=== PATIENT | female | born 1975 | race Caucasian/White ===

== ENCOUNTER → 2017-12-13 07:28 | Outpatient (CLI) | payer BC, SELFPAY ==
[2017-12-22 11:48] LABS: HPV Reflexed? NOT INDICATED
== END ==
PROVIDERS: Family Provider Student in an Organized Health Care Education/Training Program; PCP Student in an Organized Health Care Education/Training Program; Visit Provider Obstetrics & Gynecology
DX: Z12.4 Encounter for screening for malignant neoplasm of cervix (principal)
CPT/HCPCS: 88175; G0145

== ENCOUNTER 2019-05-22 20:36 | Inpatient (IN) | payer BC, SELFPAY ==
[2019-05-22 20:37] VITALS: BP 164/84; PULSE 109; RESP 26; TEMP 36.8; O2SAT 97; BMI 30.2
--- NOTE | 2019-05-22 20:53 | EKG12_ITS ---
Test Reason : SOB Blood Pressure : / mmHG Vent. Rate : 079 BPM Atrial Rate : 079 BPM P-R Int : 176 ms QRS Dur : 086 ms QT Int : 392 ms P-R-T Axes : 045 016 034 degrees QTc Int : 449 ms Normal sinus rhythm Normal ECG Confirmed by KAYLI ROCHA, CRISPIN ([id number]), editor farm journal MANJEET GONZALEZ ([id number]) on 05/24/2019 11:58:15 AM Referred By: GERI Confirmed By:CRISPIN MILAN MD
--- NOTE | 2019-05-22 20:58 | ED.DCSUM_ITS ---
History of Present Illness Chief Complaint: Shortness of Breath Informant: Patient Onset: Today - about 7 hrs or so Activity at onset: Rest Timing: Continuous Quality: - - can't take deep breath Current Severity: Moderate Maximum Severity: Moderate Worsened by: Nothing. Not Worsened By: Coughing, Exertion, Lying flat Relieved by: Nothing. Not Relieved By: Rest Associated Symptoms: Cough - mild, nonproductive Chest Pain: None Narrative: Patient has a history of hayfever/seasonal allergies but no asthma that she knows of. Started getting short of breath at work today, she states a coworker had a window open and she did not know if it was allergies, but the dyspnea has become worse tonight. She has developed no chest discomfort even with deep breathing, but has developed some inspiratory mild sounds that seem like they are coming from her HEENT/neck area. She has no sore throat or swallowing and does not feel like her throat is swelling. She has felt a little lightheaded once with standing up, but denies any presyncopal episodes, palpitations, no swelling or pain in either of her legs. Minor cough lately, no fevers. No clotting disorders in the family that she knows of. PE Risk Factors: Negative for: Cancer, OCP + Smoking + > 35, Prior DVT or PE, Recent immobilization, Recent surgery, Recent travel - Past Medical History (1) Seasonal allergies Status: Chronic (2) Antepartum anemia Status: Chronic Past Medical History - Allergies and Home Meds Allergies/Adverse Reactions: Allergies amoxicillin [Amoxicillin] Allergy (Verified 05/22/19 20:39) Hives HAYFEVER Allergy (Uncoded 05/22/19 20:39) Itching Primary Care Physician: Kaushal Castillo DO [Primary Care Provider] - Lives: Spouse/ Significant Other Smoking Status: Former smoker Drugs: None Review of Systems General: Reports: Malaise. Denies: Chills, Fever, Sweats Eyes: Denies: Visual changes - bilaterally, Diplopia ENT: Denies: Rhinorrhea, Sore throat Cardiovascular: Denies: Chest pain, Palpitations Respiratory: Reports: Dyspnea, Cough. Denies: Sputum, Dyspnea on exertion, Orthopnea Gastrointestinal: Denies: Abdominal pain, Nausea, Vomiting, Diarrhea, Melena, Hematochezia Genitourinary: Denies: Dysuria, Hematuria, Frequency Musculoskeletal: Denies: Back pain, Swelling, Extremity Pain Skin: Denies: Rash, Wounds Neurological: Denies: Headache, Weakness, Numbness Physical Exam Vital Signs/Narrative: Vital Signs Temp Pulse Resp BP Pulse Ox 05/22/19 20:37 98.2 F 109 H 26 H 164/84 H 97 Inital Vital Signs reviewed: Yes General: Well nourished, Well developed, No Acute Distress - But taking frequent deep breaths and appears a little uncomfortable Head: Normocephalic, Atraumatic Eyes: Perrl, EOMI ENT: Moist mucous membranes, No rhinorrhea, - - No stridor. Neck: Supple, Nontender Cardiovascular: Regular rate, Regular rhythm, No murmurs, Normal S1, Normal S2, Tachycardia - Mild Respiratory: No distress, Chest nontender, - - Bilateral anterior inspiratory low pitched noise only at the beginning of inspiration, very brief. Negative for: Rales, Rhonchi Abdomen: Soft, Nontender, Nondistended, Normal bowel sounds Back: Nontender, Normal Inspection. Negative for: CVA tenderness Extremities: Nontender, No edema. Negative for: Calf Tenderness Skin: Normal color, No rash, No Trauma Neurological: Alert, Oriented x3, Cranial nerves II-XII grossly intact, Normal Strength, Normal Sensation, Normal Gait Psychological: Normal affect, Normal Mood Diagnostic/Tx/Re-eval CTA PE Study: No Evidence of PE Impressions Chest X-Ray 05/22/19 21:27 IMPRESSION: Normal x-ray examination of the chest. Electronically Signed: Chilo Barnard MD at 21:45 EDT , Service support , Chest CTA 05/22/19 22:15 IMPRESSION: Normal CTA chest examination, without a demonstrated pulmonary embolism or arterial dissection. Electronically Signed: Chilo Barnard MD at 22:43 EDT , Service support , 05/22/19 21:27 Chest PA and Lateral [RAD] Stat 05/22/19 22:15 CTA Chest W/WO Contrast [CT] Stat Laboratory Results 05/22/19 05/22/19 05/22/19 21:00 21:00 21:00 WBC 8.2 RBC 4.32 Hgb 12.9 Hct 36.3 L MCV 84.0 MCH 29.9 MCHC 35.5 RDW Std Deviation 38.2 RDW Coeff of Jerry 12.5 Plt Count 288 MPV 9.6 Immature Gran % (Auto) 0.400 Neut % (Auto) 57.1 Lymph % (Auto) 33.0 [place] % (Auto) 7.3 Eos % (Auto) 1.6 Baso % (Auto) 0.6 Absolute Neuts (auto) 4.7 Absolute Lymphs (auto) 2.71 Nucleated RBC % 0 D-Dimer Quant (PE/DVT) < 0.27 L Sodium 142 Potassium 3.3 L Chloride 113 H Carbon Dioxide 20.0 L Anion Gap 9 BUN 9 Creatinine 0.68 Estim Creat Clear Calc 85.24 Est GFR (MDRD) Af Amer 122 Est GFR (MDRD) Non-Af 100 BUN/Creatinine Ratio 13.2 Glucose 89 Calcium 9.1 Troponin I < 0.015 Treatment - Dyspnea: Albuterol, Atrovent Repeat Evaluation: No change - Medical Decision Making There is no change in albuterol treatment. Chest x-ray and EKG are normal. Her d-dimer was negative, but I still felt given her frequent deep respirations that would be meek to perform CT angiography, it is negative/normal. Her labs s how low bicarb and potassium and high chloride with a normal anion gap. She has had no diarrhea recently. This suggests she may have renal tubular acidosis. ABG and urinalysis were sent. Urinalysis shows microscopic hematuria and is otherwise normal, patient states she has a history of microscopic hematuria and saw urologist for it, was told she did not have to come back and it was no big deal. ABG is as follows: 7.55/15.4/140/13.5. This suggests a mixed acid-base disorder, a respiratory alkalosis and a non-anion gap metabolic acidosis. My suspicion is that she has the acidosis that is causing her to feel short of breath, and the patient admits that she is feeling a little anxious because she is dyspneic, causing her to overcompensate, showing the respiratory alkalosis. I think it would be best to admit her for further testing, as the treatment depends on the cause. ED Disposition - Plan for ED Patient: Disposition: Acute Care [facility] Diagnosis: Metabolic acidosis with respiratory alkalosis, Hypokalemia, Dyspnea Referrals: Kaushal Castillo DO [Primary Care Provider] -
[2019-05-22 21:11] LABS: Absolute Lymphocyte Count 2.71 X10^3/uL (0.83-4.51); Absolute Neutrophil Count 4.7 X10^3/uL (2.0-7.7); Basophil# 0.05 X10^3/uL; Basophil% 0.6 % (0-1); Eosinophil# 0.13 X10^3/uL; Eosinophils% 1.6 % (0-5); Hematocrit 36.3 % (37-47); Hemoglobin 12.9 g/dL (12.0-15.0); Lymphocyte # 2.71 X10^3/ul (4.0); Mean Corp Hgb Conc 35.5 g/dL (32-36); Mean Corpuscular Hgb 29.9 pg (27.0-32.0); Mean Platelet Vol. 9.6 fl (6.2-12.0); Monocyte% 7.3 % (0-10); NRBC Flagged by Analyzer 0 % (0-5); Neutrophil # 4.69 X10^3/uL (2.7-7.7); Neutrophil % 57.1 % (47-70); Platelet Count 288 K/mm3 (150-450); RBC Distribution Width CV 12.5 % (11.6-14.6); RBC Distribution Width SD 38.2 fl (35.1-43.9); Red Blood Count 4.32 M/mm3 (4.2-5.4); White Blood Count 8.2 K/mm3 (4.4-11.0)
[2019-05-22 21:12] VITALS: O2SAT 100
[2019-05-22 21:19] VITALS: PULSE 86; RESP 20
[2019-05-22] MEDS: Ipratropium/Albuterol Sulfate 3 ML AMPUL.NEB INHALATION (21:19)
[2019-05-22 21:27] LABS: Anion Gap 9 (5-15); BUN 9 mg/dL (7-18); BUN/Creat Ratio 13.2 RATIO (10-20); Calcium,Total 9.1 mg/dL (8.5-10.1); Chloride 113 mmol/L (98-107); Creatinine, Serum 0.68 mg/dL (0.55-1.02); EST Glomerular Filtration Rate 100 mL/min (>60); Est Glom Filt Rate - Afr Amer 122 mL/min (>60); Estimated Creatinine Clearance 85.24 ml/min; Glucose 89 mg/dL (74-106); Potassium 3.3 mmol/L (3.5-5.1); Sodium Level 142 mmol/L (136-145)
--- NOTE | 2019-05-22 21:27 | RAD_ITS ---
STUDY: X-RAY CHEST REASON FOR EXAM: Female, 43 years old. Shortness of breath TECHNIQUE: Frontal and lateral views of the chest. COMPARISON: None. FINDINGS: The lungs are clear and expanded. There is no demonstrated pleural abnormality. Normal size heart. Normal mediastinum and andrae. Normal visualized pulmonary arteries. Normal visualized aortic arch and descending thoracic aorta. Normal visualized thoracic spine. Normal visualized ribs, clavicles, and shoulders. There is no demonstrated abnormality of the visualized soft tissue structures of the upper abdomen. RAD/Chest PA and Lateral IMPRESSION: Normal x-ray examination of the chest. Electronically Signed: Chilo Barnard MD at 21:45 EDT , Service support ,
[2019-05-22 21:53] LABS: D-Dimer Quantitative (DVT/PE) < 0.27 FEU/ug/m (0.27-0.49)
[2019-05-22] MEDS: 0.9% Normal Saline 1,000 ML 999 ML IV (22:01)
[2019-05-22] MEDS: Ondansetron 4 MG/2 ML Vial IV (22:01)
--- NOTE | 2019-05-22 22:15 | CT_ITS ---
STUDY: CTA CHEST REASON FOR EXAM: Female, 43 years old. Shortness of breath RADIATION DOSAGE (If Supplied By Facility): CTDIvol = ( 10.96 ) mGy, DLP = ( 477.25 ) mGycm TECHNIQUE: The examination was performed with the intravenous administration of 100ml IV Isovue 370. Post-processing of the angiographic images was performed, with multiplanar reformation and 3D reconstruction. Individualized dose optimization techniques were used for this CT. COMPARISON: May 22, 2019 FINDINGS: Normal enhancement of the main pulmonary artery and right and left pulmonary arteries. Normal enhancement of the bilateral peripheral pulmonary arteries. There is no demonstrated pulmonary embolism. Normal thoracic aorta and visualized great vessels. There is no demonstrated aortic dissection. Normal heart and pericardium. Normal mediastinum. Normal hilar regions. Normal visualized trachea and bronchi. The lungs are well expanded. Normal pulmonary parenchyma. Normal pleura. Normal chest wall structures. Normal osseous structures. Normal visualized upper abdomen. CT/CTA Chest W/WO Contrast IMPRESSION: Normal CTA chest examination, without a demonstrated pulmonary embolism or arterial dissection. Electronically Signed: Chilo Barnard MD at 22:43 EDT , Service support ,
[2019-05-22 23:07] VITALS: BP 134/93; PULSE 84; RESP 16; O2SAT 100
[2019-05-22 23:09] LABS: Bacteria 0 SEEN /hpf (None Seen); Mucous, Urine 0 SEEN /hpf (<or=2+); Squamous Epithelial Cells - UA 0 SEEN /hpf (5-10); White Blood Cells 0 SEEN /hpf (0-5)
[2019-05-22 23:10] LABS: Color, Urine Straw (Yellow); Glucose, Dipstick Normal (Normal); Ketone-Dipstick Negative (Negative); Leukocyte Esterase-Dipstick Negative /ul (Negative); Nitrite-Dipstick Negative (Negative); Occult Blood-Urine 150 /ul (Negative); Protein-Dipstick Negative (Negative); Urine Bilirubin Dipstick Negative (Negative); Urine Clarity Clear (Clear); Urine Urobilinogen Normal (Normal)
[2019-05-22 23:19] LABS: Red Blood Cells-Urine 0-5 SEEN /hpf (0-5)
--- NOTE | 2019-05-22 23:25 | CPS ---
Critical Values on ABG: PCO2 [address] Fitzgerald
[2019-05-22 23:26] LABS: Allen Test POS; Base Excess -9 mmol/L (-2 to +2); Bicarbonate 13.5 mmol/L (22-26); Blood Gas Specimen Type ART; O2 Delivery Device Room Air; PO2 140 mmHG (75-100); SITE L Radial; SO2 100 % (95-99); Time Given 2310; Total Carbon Dioxide 14 mmol/L; pCO2 15.4 mmHg (35-45); pH 7.55 (7.35-7.45)
[2019-05-23] VITALS (11 sets, daily range): BP systolic 125–141; BP diastolic 64–81; PULSE 74–92; RESP 14–26; TEMP 36.5–37.6; O2SAT 97–100; BMI 31.6
--- NOTE | 2019-05-23 00:02 | HP.PCM_ITS ---
Problem List (1) Seasonal allergies Status: Chronic (2) Metabolic acidosis with respiratory alkalosis Status: Acute (3) Hypokalemia Status: Acute (4) Dyspnea Status: Acute History of Present Illness Date of Admission: 05/23/19 Chief Complaint: shortness of breath The patient is a 43 year old female presents to the emergency room with shortness of breath. The patient first noticed this when at work this morning as she felt she was having trouble getting a full breath of air, at that time she wrote it off to feeling anxious thinking that this would pass and she would feel normal as she has in the past. Then as the day progressed she noticed she was struggling more to get a full breath of air at which point she noticed the deskmate next to her had the windows open and she attributed her worsening breathing to seasonal allergies. This did not improve and her shortness of breath became worse during the day. She has not experienced chest pain, nausea with this shortness of breath. Laboratory studies revealed white blood cell count of 8.2 hemoglobin 12.9, hematocrit 36.3, platelets 288, arterial blood gas shows pH 7.55/bicarb 13.5 last PCO2 15.4/PO2 140, sodium 142, potassium 3.3, chloride 113, bicarb 20, BUN 9, creatinine 0.68, troponin negative, urine unremarkable except for hematuria. Chest x-ray was within normal limits as well as CT angiogram of the chest was negative for pulmonary embolism or other pathology. Currently the patient's vital signs are stable, however, she remains short of breath(tachypneic) and due to the nature of an acid-base disturbance it was felt best to admit the patient for further work-up. Past Medical History Past Medical History (Chronic Problems): Chronic Problems Seasonal allergies (Chronic) Antepartum anemia (Chronic) Allergies amoxicillin [Amoxicillin] Allergy (Verified 05/22/19 20:39) Hives HAYFEVER Allergy (Uncoded 05/22/19 20:39) Itching Home Medications: Ambulatory Orders Medication Instructions Recorded Famotidine [Pepcid] 20 mg PO BID PRN 02/17/14 Vits [Prenatabs FA ] 1 tablet PO DAILY 02/17/14 Cetirizine HCl [Zyrtec] 10 mg PO DAILY 05/22/19 Lives: Spouse/ Significant Other Smoking Status: Never smoker Drugs: None - *Family History Maternal History Items: No pertinent history Review of Systems Constitutional: Denies: Chills, Fever, Weight Change HEENT: Denies: Head Aches, Sinus Congestion, Sinus Drainage Cardiovascular: Denies: Chest Pain, Palpitations Respiratory: Reports: Shortness of breath at rest. Denies: Cough, Hemoptysis, Pleuritic Pain, Sputum production, Wheezing Gastrointestinal: Denies: Abdominal Pain, Nausea, Vomiting Genitourinary: Denies: Dysuria Musculoskeletal: Denies: Joint Pain, Joint Tenderness Skin: Denies: Rash, Wounds Neurological: Denies: Numbness, Tingling, Focal weakness Psychiatric: Reports: Anxiety. Denies: Depression, Homicidal Ideations, Suicidal Ideations Hematologic/ Lymphatic: Denies: Easy Bruising, Easy Bleeding VTE Information - Inpt Only VTE Present on Admission: No VTE Mechan Device Prophylaxis: None VTE Pharm Prophylaxis ordered?: Yes Patient Problems: Active and Suspected Problems Metabolic acidosis with respiratory alkalosis (Acute) Hypokalemia (Acute) Dyspnea (Acute) - Physical Exam General: Alert, Oriented x3, Cooperative HEENT: Atraumatic, Normocephalic Neck: Supple Lungs: Clear to auscultation, Normal air movement, Tachypneic Cardiovascular: Regular rate, Normal S1, Normal S2, No murmurs Abdomen: Bowel Sounds Present, Soft, Non Tender Extremities: No edema, Capillary Refill Less than 3 Seconds Skin: No rashes Musculoskeletal: No Tenderness to Palpation of Joints or Extremities Neurological: Neuro grossly intact Psych/Mental Status: Normal Affect, Appropriate Vital Signs Temp Pulse Resp BP Pulse Ox 98.2 F 84 16 134/93 H 100 05/22/19 20:37 05/22/19 23:07 05/22/19 23:07 05/22/19 23:07 05/22/19 23:07 Oxygen Delivery Method Room Air Weight: 165 lb Body Mass Index (BMI) 30.2 Intake and Output for Last 24 Hours 05/21/19 05/22/19 05/23/19 23:59 23:59 23:59 Intake Total 1000 / 1000 Balance 1000 / 1000 Laboratory Tests Past 24 Hrs 05/22/19 05/22/19 05/22/19 21:00 21:00 21:00 WBC 8.2 RBC 4.32 Hgb 12.9 Hct 36.3 L MCV 84.0 MCH 29.9 MCHC 35.5 RDW Std Deviation 38.2 RDW Coeff of Jerry 12.5 Plt Count 288 MPV 9.6 Immature Gran % (Auto) 0.400 Neut % (Auto) 57.1 Lymph % (Auto) 33.0 [place] % (Auto) 7.3 Eos % (Auto) 1.6 Baso % (Auto) 0.6 Absolute Neuts (auto) 4.7 Absolute Lymphs (auto) 2.71 Nucleated RBC % 0 D-Dimer Quant (PE/DVT) < 0.27 L Specimen Type Sample Site pH Bicarbonate Actual POC Total CO2 Base Excess O2 Saturation ABG pCO2 ABG pO2 Raghu Test O2 Delivery Device Blood Gas Notified Whom Blood Gas Notified Time Sodium 142 Potassium 3.3 L Chloride 113 H Carbon Dioxide 20.0 L Anion Gap 9 BUN 9 Creatinine 0.68 Estim Creat Clear Calc 85.24 Est GFR (MDRD) Af Amer 122 Est GFR (MDRD) Non-Af 100 BUN/Creatinine Ratio 13.2 Glucose 89 Calcium 9.1 Troponin I < 0.015 Urine Color Urine Clarity Urine pH Ur Specific [place] Urine Protein Urine Glucose (UA) Urine Ketones Urine Occult Blood Urine Nitrite Urine Bilirubin Urine Urobilinogen Ur Leukocyte Esterase Urine RBC Urine WBC Ur Squamous Epith Cells Urine Bacteria Urine Mucus 05/22/19 05/22/19 23:05 23:15 WBC RBC Hgb Hct MCV MCH MCHC RDW Std Deviation RDW Coeff of Jerry Plt Count MPV Immature Gran % (Auto) Neut % (Auto) Lymph % (Auto) [place] % (Auto) Eos % (Auto) Baso % (Auto) Absolute Neuts (auto) Absolute Lymphs (auto) Nucleated RBC % D-Dimer Quant (PE/DVT) Specimen Type ART Sample Site L Radial pH 7.55 H Bicarbonate Actual 13.5 L POC Total CO2 14 Base Excess -9 L O2 Saturation 100 H ABG pCO2 15.4 L* ABG pO2 140 H Raghu Test POS O2 Delivery Device Room Air Blood Gas Notified Whom ED Blood Gas Notified Time 2310 Sodium Potassium Chloride Carbon Dioxide Anion Gap BUN Creatinine Estim Creat Clear Calc Est GFR (MDRD) Af Amer Est GFR (MDRD) Non-Af BUN/Creatinine Ratio Glucose Calcium Troponin I Urine Color Straw Urine Clarity Clear Urine pH 8.0 Ur Specific [place] 1.010 Urine Protein Negative Urine Glucose (UA) Normal Urine Ketones Negative Urine Occult Blood 150 H Urine Nitrite Negative Urine Bilirubin Negative Urine Urobilinogen Normal Ur Leukocyte Esterase Negative Urine RBC 0-5 SEEN Urine WBC 0 SEEN Ur Squamous Epith Cells 0 SEEN Urine Bacteria 0 SEEN Urine Mucus 0 SEEN Assessment/Plan All Active Problems Metabolic acidosis with respiratory alkalosis (Acute) Hypokalemia (Acute) Dyspnea (Acute) Chronic Problems Seasonal allergies (Chronic) Antepartum anemia (Chronic) Plan 1. Shortness of breath, suspect metabolic acidosis with respiratory alkalosis?we will continue supportive care throughout the night and encourage patient to slow her breathing down as best as she can. Will consult nephrology in the a.m. to assist with the possibility of renal tubular acidosis as an underlying etiology for this presentation. We will repeat a blood gas, CBC, BMP, urine sodium, urine osmolality,serum osmolality, will place patient in progressive care unit with cardiac monitoring as well as pulse oximetry. Patient is able to talk in full sentences at this time and is felt stable for placement in the progressive care unit. 2. Hypokalemia?replace potassium 3. DVT prophylaxis?low molecular weight heparin Code Visit Inpatient E&M: 66298 Init Hosp L3
[2019-05-23 01:10] LABS: Urine Sodium 48 mmol/L (Not Establ.)
[2019-05-23 02:10] LABS: Absolute Neutrophil Count 5.9 X10^3/uL (2.0-7.7); Basophil# 0.03 X10^3/uL; Basophil% 0.4 % (0-1); Eosinophil# 0.01 X10^3/uL; Eosinophils% 0.1 % (0-5); Hematocrit 36.8 % (37-47); Hemoglobin 12.9 g/dL (12.0-15.0); Lymphocyte % 19.4 % (19-41); Mean Corp Hgb Conc 35.1 g/dL (32-36); Mean Corpuscular Hgb 29.7 pg (27.0-32.0); Mean Corpuscular Volume 84.8 fL (81-99); Mean Platelet Vol. 9.6 fl (6.2-12.0); Monocyte# 0.33 X10^3/uL; Monocyte% 4.3 % (0-10); NRBC Flagged by Analyzer 0 % (0-5); Neutrophil # 5.85 X10^3/uL (2.7-7.7); Neutrophil % 75.4 % (47-70); Platelet Count 289 K/mm3 (150-450); RBC Distribution Width CV 12.6 % (11.6-14.6); RBC Distribution Width SD 38.6 fl (35.1-43.9); Red Blood Count 4.34 M/mm3 (4.2-5.4); White Blood Count 7.8 K/mm3 (4.4-11.0)
[2019-05-23 02:21] LABS: Anion Gap 11 (5-15); BUN 7 mg/dL (7-18); BUN/Creat Ratio 9.7 RATIO (10-20); Calcium,Total 8.6 mg/dL (8.5-10.1); Chloride 113 mmol/L (98-107); Creatinine, Serum 0.72 mg/dL (0.55-1.02); EST Glomerular Filtration Rate 94 mL/min (>60); Est Glom Filt Rate - Afr Amer 114 mL/min (>60); Glucose 105 mg/dL (74-106); Magnesium 2.1 mg/dL (1.6-2.6); Potassium 3.4 mmol/L (3.5-5.1); Sodium Level 142 mmol/L (136-145)
[2019-05-23 02:29] LABS: Osmolality, Serum 290 mOsm/KG (275-295)
[2019-05-23 02:35] LABS: Phosphorus 2.8 mg/dL (2.5-4.9)
[2019-05-23 02:35] LABS: Osmolality, Urine 130 mOsm/KG
--- NOTE | 2019-05-23 02:50 | NURSING ---
SHAYY MENEZES NOTIFIED THAT PT IS REFUSING BLOOD DRAW. PT SAID IT STILL HURTS WHERE THEY TOOK IT IN ED. PT REFUSES TO HAVE IT DONE AT THIS TIME
[2019-05-23] MEDS: Famotidine 20 MG Tablet PO (09:06)
[2019-05-23 09:59] LABS: Urine Chloride 39 mmol/L (Not Establ.); Urine Sodium 48 mmol/L (Not Establ.)
[2019-05-23] MEDS: Prenatal Vits Tablet 1 TABLET PO (10:22)
[2019-05-23] MEDS: Loratadine 10 MG Tablet PO (10:22)
[2019-05-23] MEDS: Enoxaparin 40 MG/0.4 ML Syringe SC (10:22)
--- NOTE | 2019-05-23 11:42 | CASEMGMT ---
RN CM Assessment Presentation: shortness of breath, metabolic acidosis w/resp alkalosis. Intro role of CM and purpose of RN CM assessment. Demographics, PCP and Pharmacy verified with . Pt is independent, no care needs. Plans to return home on dc. PCP: Dr. Kaushal Castillo Specialists: Dr. Nava, nephrology Preferred Pharmacy: [facility] Insurance: [place] Prescription Benefit: yes LNOK: Micah Parikh Living Arrangements: Lives independently with . No care needs identified. Transportation: drives DME: none HHC: none Patient DC goals: Home DC PLAN: Home [place] WILHELM RN ACM
[2019-05-23 14:34] LABS: Blood Gas Specimen Type VEN; O2 Delivery Device RA; SITE L RADIAL; Time Given 1339; VBG PO2 63 mmHg (25-40); VBG pCO2 19.4 mmHg (41-51); VBG pH 7.53 (7.32-7.42)
[2019-05-23 14:35] LABS: VBG BASE EXCESS -6 mmol/L (-1.0-3.5); VBG Bicarbonate 16 mmol/L (22-26); VBG SO2 95 % (50-70)
--- NOTE | 2019-05-23 16:06 | US_ITS ---
REPORT STUDY: RENAL ULTRASOUND - COMPLETE REASON FOR EXAM: Female, 43 years old. Microscopic hematuria TECHNIQUE: Ultrasound evaluation of the kidneys was performed with real-time and static patricio-scale imaging. COMPARISON: None. FINDINGS: RIGHT KIDNEY: Normal location of the right kidney, which is normal in size. The right kidney measures 12.6 cm. There is a normal cortex of the right kidney. The renal cortex measures 2 cm. There is no right renal mass or cyst. There are no right renal calculi. There is no right hydronephrosis. DISTAL RIGHT URETER: There is non-visualization of the distal right ureter. There is no demonstrated right ureterovesical junction calculus. There is a visualized right ureteral jet. LEFT KIDNEY: Normal location of the left kidney, which is normal in size. The left kidney measures 13.3 cm. There is a normal cortex of the left kidney. The renal cortex measures 1.8 cm. There is no left renal mass or cyst. There are no left renal calculi. There is no left hydronephrosis. 2.8 x 1.8 cm simple renal cortical cyst. DISTAL LEFT URETER: There is non-visualization of the distal left ureter. There is no demonstrated left ureterovesical junction calculus. There is a visualized left ureteral jet. BLADDER: The distended urinary bladder has a volume of 137 ml. There is a normal wall thickness of the distended urinary bladder. There is no demonstrated mass within the urinary bladder. There are no demonstrated bladder calculi. US/Kidney and Bladder IMPRESSION: Normal ultrasound of the kidneys and urinary bladder. Electronically Signed: Chilo Barnard MD at 17:00 EDT , Service support ,
--- NOTE | 2019-05-23 16:15 | CON.PCM_ITS ---
Consultation - Renal 05/23/19 PCP/ Referring MD: Requesting physician: David Trinidad MD Primary care physician: Kaushal Castillo DO Reason for Consultation:: metabolic acidosis - History of Present Illness History of Present Illness: The patient is a 43 year old F presents to the emergency room with shortness of breath past 24hrs. She felt like she was gasping for air or not getting full breath of air. Denied chest pain, palpitations, shortness of breath. Denied lightheadedness, syncope. Denies history of anxiety attacks, depression. She denies PE, DVT. Ddimer was negative <0.27 with unremarkable CTA and CXR. Renal function was stable with creatinine 0.68. Her bicarbonate was low at 15 on ABG with respiratory alkalosis pH 7.5 serum bicarbonate 18-20 chloride 113. She denies diarrhea or laxative use. She complains of pelvic cramps associated with BMs and menstrual cycles. She does not take medications on a regular basis other than allergy meds. Denies acetaminophen use but takes ibuprofen for migraines, none recently. She denies glue sniffing, ingestion of alcohol. She denies hypertension, diabetes, heart disease. Denies autoimmune disorder. She has a history of microscopic hematuria. Denies history of kidney stones, autoimmune disease, arthralgias, skin rash. FH significant for CKD in her father with renal tumors, gross hematuria. - Allergies Allergies: Allergies cefdinir Allergy (Intermediate, Verified 05/23/19 08:47) Rash all over amoxicillin [Amoxicillin] Allergy (Verified 05/22/19 20:39) Hives HAYFEVER Allergy (Uncoded 05/22/19 20:39) Itching - Current Medications Current Medications: Current Medications Enoxaparin Sodium (Lovenox) 40 mg SC DAILY@1000 SILVANO Last Admin: 05/23/19 10:22 Dose: 40 mg Documented by: Famotidine (Pepcid) 20 mg PO BID PRN PRN PRN Reason: ABD PAIN Last Admin: 05/23/19 09:06 Dose: 20 mg Documented by: Sodium Chloride () 250 mls @ 15 mls/hr IV .[id number] PRN PRN Reason: SALINE FLUSH Loratadine (Claritin) 10 mg PO DAILY [facility] Last Admin: 05/23/19 10:22 Dose: 10 mg Documented by: Ondansetron HCl (Zofran) 4 mg IV Q8H PRN PRN PRN Reason: NAUSEA/VOMITING Multivit/Folic Acid/Iron (Prenatabs Fa) 1 tablet PO DAILY SILVANO Last Admin: 05/23/19 10:22 Dose: 1 tablet Documented by: Sodium Chloride () 10 - 40 ml IV UD PRN PRN Reason: SALINE FLUSH - Past Medical History Past Medical History (Chronic Problems): Chronic Problems Seasonal allergies (Chronic) Antepartum anemia (Chronic) - Past Surgical History Surgical History: - - c section - Social History Smoking Status: Never smoker Tobacco Use: Non-smoker Alcohol: None Drugs: None - Family History Maternal History Items: No pertinent history Paternal History Items: Renal Disease - ckd, renal tumors Review of Systems Constitutional: Denies: Anorexia, Chills, Fever, Weakness Eyes: Denies: Blurred vision HEENT: Reports: Head Aches - hx migraines Cardiovascular: Denies: Chest Pain, Edema, Light Headedness, Palpitations, Syncope Respiratory: Reports: Shortness of Breath, Shortness of breath at rest. Denies: Cough Gastrointestinal: Denies: Abdominal Pain, Diarrhea, Nausea, Vomiting Genitourinary: Reports: - - hx microscopic hematuria. Denies: Dysuria Musculoskeletal: Reports: Joint stiffness, Joint swelling Skin: Denies: Rash Neurological: Denies: Balance problems, Blurred vision, Tremor, Seizures Psychiatric: Denies: Anxiety, Depression Hematologic/ Lymphatic: Denies: Anemia, Hx of blood clot Patient Problems: Active and Suspected Problems Type I RTA (Acute) Metabolic acidosis with respiratory alkalosis (Acute) Hypokalemia (Acute) Dyspnea (Acute) - Physical Exam General: Alert, Oriented x3 HEENT: PERRLA, EOMI Oral: Dry Mucosa Neck: Supple Lungs: Clear to auscultation Cardiovascular: Regular rate Abdomen: Bowel Sounds Present, Soft, Non Tender, Non-Distended Extremities: No edema Skin: No rashes Musculoskeletal: No Muscle Wasting Neurological: Cranial nerves II-XII grossly intact Psych/Mental Status: Normal Affect, Appropriate, Alert and oriented to time, place, person, mood and affect Vital Signs Temp Pulse Resp BP Pulse Ox 99.7 F H 74 18 130/81 H 100 05/23/19 13:45 05/23/19 15:00 05/23/19 13:45 05/23/19 13:45 05/23/19 13:45 Oxygen Delivery Method Room Air Weight: 78.4 kg Body Mass Index (BMI) 31.6 Intake and Output for Last 24 Hours 05/21/19 05/22/19 05/23/19 23:59 23:59 23:59 Intake Total 1000 / 1000 1780 / 1780 Output Total 1500 / 1500 Balance 1000 / 1000 280 / 280 Laboratory Tests Past 24 Hrs 05/22/19 05/22/19 05/22/19 21:00 21:00 21:00 WBC 8.2 RBC 4.32 Hgb 12.9 Hct 36.3 L MCV 84.0 MCH 29.9 MCHC 35.5 RDW Std Deviation 38.2 RDW Coeff of Jerry 12.5 Plt Count 288 MPV 9.6 Immature Gran % (Auto) 0.400 Neut % (Auto) 57.1 Lymph % (Auto) 33.0 Walker % (Auto) 7.3 Eos % (Auto) 1.6 Baso % (Auto) 0.6 Absolute Neuts (auto) 4.7 Absolute Lymphs (auto) 2.71 Nucleated RBC % 0 D-Dimer Quant (PE/DVT) < 0.27 L Specimen Type Sample Site pH Bicarbonate Actual POC Total CO2 Base Excess O2 Saturation ABG pCO2 ABG pO2 Raghu Test VBG pH VBG pO2 VBG O2 Sat (Calc) VBG O2 Content VBG Base Excess POC Mix VBG pCO2 Pt Tmp O2 Delivery Device Blood Gas Notified Whom Blood Gas Notified Time Sodium 142 Potassium 3.3 L Chloride 113 H Carbon Dioxide 20.0 L Anion Gap 9 BUN 9 Creatinine 0.68 Estim Creat Clear Calc 85.24 Est GFR (MDRD) Af Amer 122 Est GFR (MDRD) Non-Af 100 BUN/Creatinine Ratio 13.2 Glucose 89 Serum Osmolality Calcium 9.1 Phosphorus Magnesium Troponin I < 0.015 Urine Color Urine Clarity Urine pH Ur Specific [place] Urine Protein Urine Glucose (UA) Urine Ketones Urine Occult Blood Urine Nitrite Urine Bilirubin Urine Urobilinogen Ur Leukocyte Esterase Urine RBC Urine WBC Ur Squamous Epith Cells Urine Bacteria Urine Mucus Urine Osmolality Ur Random Sodium Urine Potassium Urine Chloride 05/22/19 05/22/19 05/23/19 23:05 23:15 01:01 WBC RBC Hgb Hct MCV MCH MCHC RDW Std Deviation RDW Coeff of Jerry Plt Count MPV Immature Gran % (Auto) Neut % (Auto) Lymph % (Auto) Walker % (Auto) Eos % (Auto) Baso % (Auto) Absolute Neuts (auto) Absolute Lymphs (auto) Nucleated RBC % D-Dimer Quant (PE/DVT) Specimen Type ART Sample Site L Radial pH 7.55 H Bicarbonate Actual 13.5 L POC Total CO2 14 Base Excess -9 L O2 Saturation 100 H ABG pCO2 15.4 L* ABG pO2 140 H Rahgu Test POS VBG pH VBG pO2 VBG O2 Sat (Calc) VBG O2 Content VBG Base Excess POC Mix VBG pCO2 Pt Tmp O2 Delivery Device Room Air Blood Gas Notified Whom ED Blood Gas Notified Time 2310 Sodium Potassium Chloride Carbon Dioxide Anion Gap BUN Creatinine Estim Creat Clear Calc Est GFR (MDRD) Af Amer Est GFR (MDRD) Non-Af BUN/Creatinine Ratio Glucose Serum Osmolality Calcium Phosphorus Magnesium Troponin I Urine Color Straw Urine Clarity Clear Urine pH 8.0 Ur Specific [place] 1.010 Urine Protein Negative Urine Glucose (UA) Normal Urine Ketones Negative Urine Occult Blood 150 H Urine Nitrite Negative Urine Bilirubin Negative Urine Urobilinogen Normal Ur Leukocyte Esterase Negative Urine RBC 0-5 SEEN Urine WBC 0 SEEN Ur Squamous Epith Cells 0 SEEN Urine Bacteria 0 SEEN Urine Mucus 0 SEEN Urine Osmolality 130 Ur Random Sodium Urine Potassium Urine Chloride 05/23/19 05/23/19 05/23/19 01:01 01:01 02:00 WBC RBC Hgb Hct MCV MCH MCHC RDW Std Deviation RDW Coeff of Jerry Plt Count MPV Immature Gran % (Auto) Neut % (Auto) Lymph % (Auto) Walker % (Auto) Eos % (Auto) Baso % (Auto) Absolute Neuts (auto) Absolute Lymphs (auto) Nucleated RBC % D-Dimer Quant (PE/DVT) Specimen Type Sample Site pH Bicarbonate Actual POC Total CO2 Base Excess O2 Saturation ABG pCO2 ABG pO2 Raghu Test VBG pH VBG pO2 VBG O2 Sat (Calc) VBG O2 Content VBG Base Excess POC Mix VBG pCO2 Pt Tmp O2 Delivery Device Blood Gas Notified Whom Blood Gas Notified Time Sodium Potassium Chloride Carbon Dioxide Anion Gap BUN Creatinine Estim Creat Clear Calc Est GFR (MDRD) Af Amer Est GFR (MDRD) Non-Af BUN/Creatinine Ratio Glucose Serum Osmolality 290 Calcium Phosphorus Magnesium Troponin I Urine Color Urine Clarity Urine pH Ur Specific [place] Urine Protein Urine Glucose (UA) Urine Ketones Urine Occult Blood Urine Nitrite Urine Bilirubin Urine Urobilinogen Ur Leukocyte Esterase Urine RBC Urine WBC Ur Squamous Epith Cells Urine Bacteria Urine Mucus Urine Osmolality Ur Random Sodium 48 48 Urine Potassium 6.0 Urine Chloride 39 05/23/19 05/23/19 05/23/19 02:00 02:00 02:00 WBC 7.8 RBC 4.34 Hgb 12.9 Hct 36.8 L MCV 84.8 MCH 29.7 MCHC 35.1 RDW Std Deviation 38.6 RDW Coeff of Jerry 12.6 Plt Count 289 MPV 9.6 Immature Gran % (Auto) 0.400 Neut % (Auto) 75.4 H Lymph % (Auto) 19.4 Walker % (Auto) 4.3 Eos % (Auto) 0.1 Baso % (Auto) 0.4 Absolute Neuts (auto) 5.9 Absolute Lymphs (auto) 1.50 Nucleated RBC % 0 D-Dimer Quant (PE/DVT) Specimen Type Sample Site pH Bicarbonate Actual POC Total CO2 Base Excess O2 Saturation ABG pCO2 ABG pO2 Raghu Test VBG pH VBG pO2 VBG O2 Sat (Calc) VBG O2 Content VBG Base Excess POC Mix VBG pCO2 Pt Tmp O2 Delivery Device Blood Gas Notified Whom Blood Gas Notified Time Sodium 142 Potassium 3.4 L Chloride 113 H Carbon Dioxide 18.0 L Anion Gap 11 BUN 7 Creatinine 0.72 Estim Creat Clear Calc 80.50 Est GFR (MDRD) Af Amer 114 Est GFR (MDRD) Non-Af 94 BUN/Creatinine Ratio 9.7 L Glucose 105 Serum Osmolality Calcium 8.6 Phosphorus 2.8 Magnesium 2.1 Troponin I Urine Color Urine Clarity Urine pH Ur Specific [place] Urine Protein Urine Glucose (UA) Urine Ketones Urine Occult Blood Urine Nitrite Urine Bilirubin Urine Urobilinogen Ur Leukocyte Esterase Urine RBC Urine WBC Ur Squamous Epith Cells Urine Bacteria Urine Mucus Urine Osmolality Ur Random Sodium Urine Potassium Urine Chloride 05/23/19 13:39 WBC RBC Hgb Hct MCV MCH MCHC RDW Std Deviation RDW Coeff of Jerry Plt Count MPV Immature Gran % (Auto) Neut % (Auto) Lymph % (Auto) Walker % (Auto) Eos % (Auto) Baso % (Auto) Absolute Neuts (auto) Absolute Lymphs (auto) Nucleated RBC % D-Dimer Quant (PE/DVT) Specimen Type JEFFY Sample Site L RADIAL pH Bicarbonate Actual POC Total CO2 Base Excess O2 Saturation ABG pCO2 ABG pO2 Raghu Test VBG pH 7.53 H VBG pO2 63 H VBG O2 Sat (Calc) 95 H VBG O2 Content Pending VBG Base Excess -6 L POC Mix VBG pCO2 Pt Tmp 19.4 L O2 Delivery Device RA Blood Gas Notified Whom HOSP Blood Gas Notified Time 1339 Sodium Potassium Chloride Carbon Dioxide Anion Gap BUN Creatinine Estim Creat Clear Calc Est GFR (MDRD) Af Amer Est GFR (MDRD) Non-Af BUN/Creatinine Ratio Glucose Serum Osmolality Calcium Phosphorus Magnesium Troponin I Urine Color Urine Clarity Urine pH Ur Specific [place] Urine Protein Urine Glucose (UA) Urine Ketones Urine Occult Blood Urine Nitrite Urine Bilirubin Urine Urobilinogen Ur Leukocyte Esterase Urine RBC Urine WBC Ur Squamous Epith Cells Urine Bacteria Urine Mucus Urine Osmolality Ur Random Sodium Urine Potassium Urine Chloride Assessment/Plan All Active Problems Type I RTA (Acute) Metabolic acidosis with respiratory alkalosis (Acute) Hypokalemia (Acute) Dyspnea (Acute) 1 Hyperchoremic, hypokalemic metabolic acidosis with respiratory alkalosis. Urine anion gap positive to suggest RTA type 1 with alkaline urine pH 8.0. No Osmolar gap or anion gap. Obtain records from [facility] for prior lab work. CTA, dDimer unremarkable for PE. No hx of glue sniffing for toluene toxicity, acetaminophen use causing 5 oxoproline excess, or diarrhea/GI loss. No hx laxative use. No history of alcohol, isopropanol or ethylene glycol use with no osmolar gap. Will start her on sodium bicarbonate tablets 650mg twice a day and f/u in office with me in 1-2 wks with repeat labs in one week. 2. Check renal US for renal mass, kidney stones. 3. Microscopic hematuria. Check MAHOGANY titer. Consider autoimmune disorder. Discussed with primary service
--- NOTE | 2019-05-23 18:00 | DCINST_ITS ---
- Discharge Diagnoses Current Active Problems: Current Active and Chronic Problems Type I RTA (Acute) Metabolic acidosis with respiratory alkalosis (Acute) Hypokalemia (Acute) Dyspnea (Acute) You will use the following diet at home:: No restrictions Your food should be the consistency of: Regular Your liquids should be the consistency of: Regular/Thin Discharge Activity: Return to Normal Activity Weight Bearing Status: Full weight bearing Allergies/Adverse Reactions: Allergies cefdinir Allergy (Intermediate, Verified 05/23/19 08:47) Rash all over amoxicillin [Amoxicillin] Allergy (Verified 05/22/19 20:39) Hives HAYFEVER Allergy (Uncoded 05/22/19 20:39) Itching Medications to take at Discharge Famotidine [Pepcid] 20 mg PO BID PRN 02/17/14 Vits [Prenatabs FA ] 1 tablet PO DAILY 02/17/14 Cetirizine HCl [Zyrtec] 10 mg PO DAILY 05/22/19 Sodium Bicarbonate 650 mg PO BID #60 tablet 05/23/19 The following prescriptions were given: Sodium Bicarbonate 650 mg PO BID #60 tablet Primary Care Physician: Kaushal Castillo DO [Primary Care Provider] - Please follow up with your Primary Care Physician in: IN 2 WEEKS Test Results: Test results from this visit will be discussed in further detail at your follow- up appointment, if applicable. Please Follow Up With: Melissa Nava DO When: 1-2 WEEKS
--- NOTE | 2019-05-25 11:10 | PCM.DC.SUM ---
Discharge Date and Diagnosis - Problem List Patient Problems: Active and Suspected Problems Type I RTA (Acute) Date of Admission: 05/23/19 Date of Discharge: 05/23/19 - Primary Discharge Diagnosis Active and Suspected Problems Type I RTA (Acute) Hyperchoremic, hypokalemic metabolic acidosis with respiratory alkalosis. Urine anion gap positive to suggest RTA type 1 - Secondary Discharge Diagnosis Chronic Problems Seasonal allergies (Chronic) Antepartum anemia (Chronic) Hospital Course and Treatment Operations: None Procedures: None Summary of Care Provided: The patient is a 43 year old F was seen in the emergency room at [facility] with a chief complaint of shortness of breath. Work-up in the emergency room included a blood gas which showed an acidosis but normal PCO2, chest x-ray was unremarkable. EKG was normal, patient's d-dimer was negative but it was decided to perform a CT of the chest-this was performed and did not show any evidence of clot. It was felt that she had RTA. Patient was placed in observation status on PCU, she was given potassium supplementation, she was seen in consultation by nephrology, testing was ordered and it was felt that the patient had type I RTA. Treatment for this would be sodium bicarb tablets. On 05/23/2019, patient was seen and examined: On examination she appeared in good health and spirits. Vital signs as documented. Skin warm and dry and without overt rashes. Neck without JVD. Lungs clear. Heart exam notable for regular rhythm, normal sounds and absence of murmurs, rubs or gallops. Abdomen unremarkable and without evidence of organomegaly, masses, or abdominal aortic enlargement. Extremities nonedematous. Neuro: Cranial nerves II through XII are grossly intact, no focal motor deficits were noted, sensation to light touch and pinprick is intact. Psych: Patient is alert and oriented x3, she does not appear anxious or depressed On 05/23/2019, patient was seen and examined and felt to be in stable condition for discharge home Patient Problems: Active and Suspected Problems Type I RTA (Acute) - Physical Exam Vital Signs Temp Pulse Resp BP Pulse Ox 98.6 F 74 14 125/80 H 100 05/23/19 17:46 05/23/19 17:46 05/23/19 17:46 05/23/19 17:46 05/23/19 17:46 Oxygen Delivery Method Room Air Weight: 78.4 kg Body Mass Index (BMI) 31.6 Intake and Output for Last 24 Hours 05/23/19 05/24/19 05/25/19 23:59 23:59 23:59 Intake Total 2300 / 2300 Output Total 1500 / 1500 Balance 800 / 800 Discharge Activity: Return to Normal Activity Weight Bearing Status: Full weight bearing Home Medications: Medications to take at Discharge Famotidine [Pepcid] 20 mg PO BID PRN 02/17/14 Vits [Prenatabs FA ] 1 tablet PO DAILY 02/17/14 Cetirizine HCl [Zyrtec] 10 mg PO DAILY 05/22/19 Sodium Bicarbonate 650 mg PO BID #60 tab 05/23/19 Following Prescrptions Were Given to Patient: Sodium Bicarbonate 650 mg PO BID #60 tab Primary Care Physician: Kaushal Castillo DO [Primary Care Provider] - Please follow up with your Primary Care Physician in: IN 2 WEEKS Please Follow Up With: Melissa Nava DO When: 1-2 WEEKS Disposition: Home Minutes spent on discharge:: 30 Patient Condition:: Stable Medical Necessity - Tobacco Use Smoking Status: Never smoker Tobacco Use: Non-smoker Meaningful Use Info Meaningful Use Diagnoses (Choose all that apply): None applicable Code Visit OBSV E&M: 29172 Observ/hosp same date L3
[2019-05-26 07:06] LABS: VBG Oxygen Content 17 mmol/L (23-33)
== END 2019-05-23 18:25 | disposition home or self-care (01) | DRG 699 ==
LOC: ED 23:49 → MS3 05-23 00:20 → PCU 05-23 00:51
PROVIDERS: Internal Medicine Nephrology; Admitting Provider Family Medicine; Emergency Provider Emergency Medicine; Family Provider Student in an Organized Health Care Education/Training Program; PCP Student in an Organized Health Care Education/Training Program; Visit Provider Internal Medicine
DX: N25.89 Other disorders resulting from impaired renal tubular function (principal); E87.4 Mixed disorder of acid-base balance; E87.6 Hypokalemia
CPT/HCPCS: 36415; 36600; 71046; 71275; 76770; 80048; 81001; 82436; 82803; 83735; 83930; 83935; 84100; 84133; 84300; 84484; 85025; 85379; 86038; 93005; 94640; 99251; 99285; J7030; Q9967; A4216; G0463; J2405

== ENCOUNTER → 2019-05-30 | Outpatient (CLI) | payer BC, SELFPAY ==
[2019-05-23 00:58] VITALS: BMI 31.6
[2019-05-30 15:24] LABS: Albumin, Serum 3.8 g/dL (3.2-5.0); BUN 7 mg/dL (7-18); BUN/Creat Ratio 11.1 RATIO (10-20); Calcium,Total 8.6 mg/dL (8.5-10.1); Chloride 107 mmol/L (98-107); Creatinine, Serum 0.63 mg/dL (0.55-1.02); EST Glomerular Filtration Rate 110 mL/min (>60); Est Glom Filt Rate - Afr Amer 133 mL/min (>60); Glucose 76 mg/dL (74-106); Phosphorus 2.7 mg/dL (2.5-4.9); Potassium 3.4 mmol/L (3.5-5.1); Sodium Level 140 mmol/L (136-145)
== END | disposition home or self-care (01) ==
LOC: LAB.FUTURE 14:40
PROVIDERS: Family Provider Student in an Organized Health Care Education/Training Program; PCP Student in an Organized Health Care Education/Training Program; Referring Provider Internal Medicine Nephrology; Visit Provider Internal Medicine Nephrology
DX: N25.89 Other disorders resulting from impaired renal tubular function (principal)
CPT/HCPCS: 36415; 80069

== ENCOUNTER → 2019-07-11 | Outpatient (CLI) | payer BC, SELFPAY ==
[2019-05-23 00:58] VITALS: BMI 31.6
--- NOTE | 2019-07-11 16:55 | BI_ITS ---
MAMMOGRAPHY - BILATERAL SCREENING REASON FOR EXAM: Female, 43 years old. Routine annual screening examination. PERTINENT HISTORY: Aunt with breast cancer. TECHNIQUE: Digital bilateral breast monique (3D mammographic acquisition) in the CC and MLO projections. 2-D mediolateral oblique (MLO) and craniocaudad (CC) views of both breasts were obtained. CAD: Full Field Digital Mammography with Computer Added Detection was performed. COMPARISON: None. Baseline examination. FINDINGS: Breast Composition: The breasts are heterogeneously dense, which may obscure small masses. There are no dominant masses or suspicious calcifications. No other significant abnormalities are identified. BI/SCREEN MAMM (CAD) W/MONIQUE BILAT IMPRESSION: Negative screening mammogram. Yearly followup mammogram recommended. (A) ASSESSMENT CATEGORY: BIRADS Category 1: Negative. A letter regarding these results will be sent to the patient by the facility within 30 days. Approximately 10% of breast cancers are not detected by mammography. A normal mammogram should not delay biopsy of a clinically suspicious abnormality. [id number] Electronically Signed: Hao Zhou, at 9:05 EDT , Service support ,
== END | disposition home or self-care (01) ==
PROVIDERS: Family Provider Student in an Organized Health Care Education/Training Program; PCP Student in an Organized Health Care Education/Training Program; Referring Provider Obstetrics & Gynecology; Visit Provider Obstetrics & Gynecology
DX: Z12.31 Encounter for screening mammogram for malignant neoplasm of breast (principal)
CPT/HCPCS: 77063; 77067

== ENCOUNTER → 2019-07-26 | Outpatient (CLI) | payer BC, SELFPAY ==
[2019-05-23 00:58] VITALS: BMI 31.6
[2019-07-26 11:02] LABS: EXAGEN MAILED SPECIMEN
[2019-07-26 12:29] LABS: Erythrocyte Sedimentation Rate 5 mm/hr (0-20)
[2019-07-26 12:33] LABS: Absolute Lymphocyte Count 1.36 X10^3/uL (0.83-4.51); Absolute Neutrophil Count 3.6 X10^3/uL (2.0-7.7); Basophil# 0.04 X10^3/uL; Basophil% 0.7 % (0-1); Eosinophils% 1.8 % (0-5); Lymphocyte # 1.36 X10^3/ul (4.0); Lymphocyte % 25.1 % (19-41); Mean Corp Hgb Conc 33.3 g/dL (32-36); Mean Corpuscular Hgb 28.8 pg (27.0-32.0); Mean Corpuscular Volume 86.3 fL (81-99); Monocyte# 0.28 X10^3/uL; Monocyte% 5.2 % (0-10); NRBC Flagged by Analyzer 0 % (0-5); Neutrophil # 3.63 X10^3/uL (2.7-7.7); Platelet Count 296 K/mm3 (150-450); RBC Distribution Width CV 12.9 % (11.6-14.6); RBC Distribution Width SD 40.1 fl (35.1-43.9); Red Blood Count 4.17 M/mm3 (4.2-5.4); White Blood Count 5.4 K/mm3 (4.4-11.0)
[2019-07-26 12:41] LABS: Color, Urine Straw (Yellow); Glucose, Dipstick Normal (Normal); Ketone-Dipstick Negative (Negative); Leukocyte Esterase-Dipstick Negative /ul (Negative); Nitrite-Dipstick Negative (Negative); Occult Blood-Urine 150 /ul (Negative); Protein-Dipstick Negative (Negative); Specific Gravity, Urine 1.005 (1.002-1.030); Urine Bilirubin Dipstick Negative (Negative); Urine Clarity Clear (Clear); Urine Urobilinogen Normal (Normal)
[2019-07-26 12:57] LABS: AST(SGOT) 19 U/L (15-37); Alanine Aminotransfer ALT/SGPT 26 U/L (13-56); Albumin, Serum 3.9 g/dL (3.2-5.0); Alkaline Phosphatase 50 U/L (45-117); Anion Gap 7 (5-15); BUN 9 mg/dL (7-18); BUN/Creat Ratio 15.2 RATIO (10-20); CRP < 2.90 mg/L (0.0-3.0); Calcium,Total 8.9 mg/dL (8.5-10.1); Chloride 105 mmol/L (98-107); Creatinine, Serum 0.59 mg/dL (0.55-1.02); EST Glomerular Filtration Rate 118 mL/min (>60); Est Glom Filt Rate - Afr Amer 142 mL/min (>60); Globulin 4.1 g/dL (2.2-4.2); Glucose 80 mg/dL (74-106); Potassium 3.5 mmol/L (3.5-5.1); Protein, Urine (Random) < 6.0 mg/dL (<11.9); Sodium Level 139 mmol/L (136-145)
[2019-07-26 13:32] LABS: Hepatitis B Surface Antibody Reactive; Hepatitis B Surface Antigen Non-Reactive (Nonreactive); Hepatitis C Antibody Non-Reactive (Nonreactive)
[2019-07-27 09:37] LABS: Hepatitis B Core AB IgM Negative (Negative)
== END | disposition home or self-care (01) ==
LOC: MTLAB 09:57
PROVIDERS: Internal Medicine Rheumatology; Family Provider Student in an Organized Health Care Education/Training Program; PCP Student in an Organized Health Care Education/Training Program; Referring Provider Internal Medicine Nephrology; Visit Provider Internal Medicine Nephrology
DX: M06.4 Inflammatory polyarthropathy (principal); M79.7 Fibromyalgia; R76.8 Other specified abnormal immunological findings in serum; E87.6 Hypokalemia; M35.00 Sjogren syndrome, unspecified
CPT/HCPCS: 36415; 80053; 81002; 82570; 84156; 85025; 85652; 86140; 86705; 86706; 86803; 87340

== ENCOUNTER → 2019-09-13 16:24 | Outpatient (CLI) | payer BC, SELFPAY ==
[2019-05-23 00:58] VITALS: BMI 31.6
[2019-09-13 18:06] LABS: Albumin, Serum 3.8 g/dL (3.2-5.0); BUN 10 mg/dL (7-18); BUN/Creat Ratio 16.2 RATIO (10-20); Calcium,Total 8.4 mg/dL (8.5-10.1); Chloride 105 mmol/L (98-107); Creatinine, Serum 0.62 mg/dL (0.55-1.02); EST Glomerular Filtration Rate 112 mL/min (>60); Est Glom Filt Rate - Afr Amer 136 mL/min (>60); Glucose 76 mg/dL (74-106); Phosphorus 3.4 mg/dL (2.5-4.9); Potassium 3.8 mmol/L (3.5-5.1); Sodium Level 138 mmol/L (136-145)
== END ==
PROVIDERS: Family Provider Student in an Organized Health Care Education/Training Program; PCP Student in an Organized Health Care Education/Training Program; Referring Provider Internal Medicine Nephrology; Visit Provider Internal Medicine Nephrology
DX: N25.89 Other disorders resulting from impaired renal tubular function (principal)
CPT/HCPCS: 36415; 80069

== ENCOUNTER → 2019-11-17 07:20 | Outpatient (CLI) | payer BC, SELFPAY ==
[2019-05-23 00:58] VITALS: BMI 31.6
[2019-11-17 10:17] LABS: Absolute Neutrophil Count 2.2 X10^3/uL (2.0-7.7); Basophil# 0.02 X10^3/uL; Basophil% 0.5 % (0-1); Eosinophil# 0.13 X10^3/uL; Hematocrit 33.9 % (37-47); Hemoglobin 10.5 g/dL (12.0-15.0); Lymphocyte % 39.5 % (19-41); Mean Corpuscular Volume 83.9 fL (81-99); Monocyte# 0.25 X10^3/uL; Monocyte% 5.8 % (0-10); NRBC Flagged by Analyzer 0 % (0-5); Neutrophil # 2.19 X10^3/uL (2.7-7.7); Platelet Count 277 K/mm3 (150-450); RBC Distribution Width CV 13.6 % (11.6-14.6); RBC Distribution Width SD 41.8 fl (35.1-43.9); Red Blood Count 4.04 M/mm3 (4.2-5.4); White Blood Count 4.3 K/mm3 (4.4-11.0)
[2019-11-17 10:36] LABS: ALB/GLOB Ratio 0.9 RATIO (0.9-2.4); AST(SGOT) 16 U/L (15-37); Alanine Aminotransfer ALT/SGPT 25 U/L (13-56); Albumin, Serum 3.6 g/dL (3.2-5.0); Alkaline Phosphatase 43 U/L (45-117); Anion Gap 1 (5-15); BUN 9 mg/dL (7-18); BUN/Creat Ratio 14.5 RATIO (10-20); Calcium,Total 8.7 mg/dL (8.5-10.1); Chloride 110 mmol/L (98-107); Creatinine, Serum 0.62 mg/dL (0.55-1.02); EST Glomerular Filtration Rate 111 mL/min (>60); Est Glom Filt Rate - Afr Amer 135 mL/min (>60); Glucose 83 mg/dL (74-106); Potassium 3.6 mmol/L (3.5-5.1); Protein, Total 7.6 g/dL (6.4-8.2); Sodium Level 141 mmol/L (136-145)
== END ==
PROVIDERS: PCP Student in an Organized Health Care Education/Training Program; Referring Provider Internal Medicine Rheumatology; Visit Provider Internal Medicine Rheumatology
DX: M79.7 Fibromyalgia (principal); R76.8 Other specified abnormal immunological findings in serum; M35.00 Sjogren syndrome, unspecified; N25.89 Other disorders resulting from impaired renal tubular function; K21.9 Gastro-esophageal reflux disease without esophagitis; R51 Headache; M06.4 Inflammatory polyarthropathy
CPT/HCPCS: 36415; 80053; 85025

== ENCOUNTER → 2020-03-13 13:14 | Outpatient (CLI) | payer BC, SELFPAY ==
[2019-05-23 00:58] VITALS: BMI 31.6
[2020-03-13 13:56] LABS: Albumin, Serum 3.7 g/dL (3.2-5.0); BUN 9 mg/dL (7-18); BUN/Creat Ratio 15.3 RATIO (10-20); Calcium,Total 8.9 mg/dL (8.5-10.1); Chloride 105 mmol/L (98-107); Creatinine, Serum 0.59 mg/dL (0.55-1.02); EST Glomerular Filtration Rate 119 mL/min (>60); Est Glom Filt Rate - Afr Amer 143 mL/min (>60); Glucose 90 mg/dL (74-106); Phosphorus 3.4 mg/dL (2.5-4.9); Potassium 3.4 mmol/L (3.5-5.1); Sodium Level 141 mmol/L (136-145)
== END ==
PROVIDERS: Family Provider Student in an Organized Health Care Education/Training Program; PCP Student in an Organized Health Care Education/Training Program; Referring Provider Internal Medicine Nephrology; Visit Provider Internal Medicine Nephrology
DX: N25.89 Other disorders resulting from impaired renal tubular function (principal)
CPT/HCPCS: 36415; 80069

== ENCOUNTER → 2020-05-24 11:26 | Outpatient (CLI) | payer BC, SELFPAY ==
[2019-05-23 00:58] VITALS: BMI 31.6
[2020-05-24 15:37] LABS: Absolute Lymphocyte Count 1.57 X10^3/uL (0.83-4.51); Absolute Neutrophil Count 4.1 X10^3/uL (2.0-7.7); Basophil# 0.05 X10^3/uL; Basophil% 0.8 % (0-1); Eosinophil# 0.15 X10^3/uL; Eosinophils% 2.4 % (0-5); Hematocrit 36.1 % (37-47); Hemoglobin 11.7 g/dL (12.0-15.0); Lymphocyte # 1.57 X10^3/ul (4.0); Lymphocyte % 24.8 % (19-41); Mean Corp Hgb Conc 32.4 g/dL (32-36); Mean Corpuscular Hgb 28.5 pg (27.0-32.0); Mean Corpuscular Volume 87.8 fL (81-99); Mean Platelet Vol. 9.8 fl (6.2-12.0); Monocyte# 0.46 X10^3/uL; Monocyte% 7.3 % (0-10); NRBC Flagged by Analyzer 0 % (0-5); Neutrophil # 4.06 X10^3/uL (2.7-7.7); Neutrophil % 64.2 % (47-70); Platelet Count 333 K/mm3 (150-450); RBC Distribution Width CV 13.4 % (11.6-14.6); RBC Distribution Width SD 42.5 fl (35.1-43.9); Red Blood Count 4.11 M/mm3 (4.2-5.4); White Blood Count 6.3 K/mm3 (4.4-11.0)
[2020-05-24 15:55] LABS: AST(SGOT) 19 U/L (15-37); Alanine Aminotransfer ALT/SGPT 27 U/L (13-56); Albumin, Serum 3.9 g/dL (3.2-5.0); Alkaline Phosphatase 45 U/L (45-117); Anion Gap 6 (5-15); BUN 9 mg/dL (7-18); BUN/Creat Ratio 16.3 RATIO (10-20); Calcium,Total 8.4 mg/dL (8.5-10.1); Chloride 104 mmol/L (98-107); Creatinine, Serum 0.55 mg/dL (0.55-1.02); EST Glomerular Filtration Rate 127 mL/min (>60); Est Glom Filt Rate - Afr Amer 154 mL/min (>60); Globulin 3.8 g/dL (2.2-4.2); Glucose 71 mg/dL (74-106); Potassium 3.3 mmol/L (3.5-5.1); Protein, Total 7.7 g/dL (6.4-8.2); Sodium Level 138 mmol/L (136-145)
== END ==
PROVIDERS: PCP Student in an Organized Health Care Education/Training Program; Referring Provider Internal Medicine Rheumatology; Visit Provider Internal Medicine Rheumatology
DX: M06.4 Inflammatory polyarthropathy (principal); M79.7 Fibromyalgia; R76.8 Other specified abnormal immunological findings in serum; M35.00 Sjogren syndrome, unspecified; M72.2 Plantar fascial fibromatosis; N25.89 Other disorders resulting from impaired renal tubular function; K21.9 Gastro-esophageal reflux disease without esophagitis; R51 Headache
CPT/HCPCS: 36415; 80053; 85025

== ENCOUNTER → 2020-08-14 13:40 | Outpatient (CLI) | payer BC, SELFPAY ==
[2019-05-23 00:58] VITALS: BMI 31.6
[2020-08-14 15:17] LABS: Absolute Lymphocyte Count 2.12 X10^3/uL (0.83-4.51); Absolute Neutrophil Count 4.4 X10^3/uL (2.0-7.7); Basophil# 0.06 X10^3/uL; Basophil% 0.8 % (0-1); Eosinophil# 0.15 X10^3/uL; Eosinophils% 2.1 % (0-5); Hematocrit 37.5 % (37-47); Hemoglobin 12.5 g/dL (12.0-15.0); Lymphocyte # 2.12 X10^3/ul (4.0); Lymphocyte % 29.3 % (19-41); Mean Corp Hgb Conc 33.3 g/dL (32-36); Mean Corpuscular Hgb 29.4 pg (27.0-32.0); Mean Corpuscular Volume 88.2 fL (81-99); Mean Platelet Vol. 9.8 fl (6.2-12.0); Monocyte# 0.53 X10^3/uL; Monocyte% 7.3 % (0-10); NRBC Flagged by Analyzer 0 % (0-5); Neutrophil # 4.35 X10^3/uL (2.7-7.7); Neutrophil % 60.2 % (47-70); Platelet Count 322 K/mm3 (150-450); RBC Distribution Width CV 13.5 % (11.6-14.6); RBC Distribution Width SD 43.8 fl (35.1-43.9); Red Blood Count 4.25 M/mm3 (4.2-5.4); White Blood Count 7.2 K/mm3 (4.4-11.0)
[2020-08-14 16:03] LABS: AST(SGOT) 11 U/L (15-37); Alanine Aminotransfer ALT/SGPT 20 U/L (13-56); Albumin, Serum 3.9 g/dL (3.2-5.0); Alkaline Phosphatase 55 U/L (45-117); Anion Gap 5 (5-15); BUN 11 mg/dL (7-18); BUN/Creat Ratio 17.9 RATIO (10-20); Calcium,Total 8.4 mg/dL (8.5-10.1); Chloride 109 mmol/L (98-107); Creatinine, Serum 0.62 mg/dL (0.55-1.02); EST Glomerular Filtration Rate 112 mL/min (>60); Est Glom Filt Rate - Afr Amer 136 mL/min (>60); Globulin 3.9 g/dL (2.2-4.2); Glucose 89 mg/dL (74-106); Potassium 3.7 mmol/L (3.5-5.1); Protein, Total 7.8 g/dL (6.4-8.2); Sodium Level 138 mmol/L (136-145)
== END ==
PROVIDERS: PCP Student in an Organized Health Care Education/Training Program; Referring Provider Internal Medicine Rheumatology; Visit Provider Internal Medicine Rheumatology
DX: M06.4 Inflammatory polyarthropathy (principal); M79.7 Fibromyalgia; R76.8 Other specified abnormal immunological findings in serum; M35.00 Sjogren syndrome, unspecified; M72.2 Plantar fascial fibromatosis; N25.89 Other disorders resulting from impaired renal tubular function; K21.9 Gastro-esophageal reflux disease without esophagitis; R51.9 Headache, unspecified
CPT/HCPCS: 36415; 80053; 85025

== ENCOUNTER → 2020-08-29 14:28 | Outpatient (CLI) | payer BC, SELFPAY ==
[2019-05-23 00:58] VITALS: BMI 31.6
[2020-09-03 09:51] LABS: HPV Reflexed? NOT INDICATED
== END ==
PROVIDERS: PCP Student in an Organized Health Care Education/Training Program; Visit Provider Obstetrics & Gynecology
DX: Z12.4 Encounter for screening for malignant neoplasm of cervix (principal)
CPT/HCPCS: 88175; G0145

== ENCOUNTER → 2020-09-19 08:56 | Outpatient (CLI) | payer BC, SELFPAY ==
[2019-05-23 00:58] VITALS: BMI 31.6
--- NOTE | 2020-09-19 08:59 | BI_ITS ---
MAMMOGRAPHY - BILATERAL SCREENING REASON FOR EXAM: Female, 44 years old. Routine annual screening examination. PERTINENT HISTORY: Aunt with breast cancer. TECHNIQUE: Digital bilateral breast monique (3D mammographic acquisition) in the CC and MLO projections. 2-D mediolateral oblique (MLO) and craniocaudad (CC) views of both breasts were obtained. CAD: Full Field Digital Mammography with Computer Added Detection was performed. COMPARISON: None. Baseline examination. FINDINGS: Breast Composition: The breasts are heterogeneously dense, which may obscure small masses. There are no dominant masses or suspicious calcifications. No other significant abnormalities are identified. BI/SCREEN MAMM (CAD) W/MONIQUE BILAT IMPRESSION: Negative screening mammogram. Yearly followup mammogram recommended. (A) ASSESSMENT CATEGORY: BIRADS Category 1: Negative. A letter regarding these results will be sent to the patient by the facility within 30 days. Approximately 10% of breast cancers are not detected by mammography. A normal mammogram should not delay biopsy of a clinically suspicious abnormality. [id number] Electronically Signed: Hao Zhou, at 10:16 EST , Service support ,
== END ==
PROVIDERS: PCP Student in an Organized Health Care Education/Training Program; Referring Provider Obstetrics & Gynecology; Visit Provider Obstetrics & Gynecology
DX: Z12.31 Encounter for screening mammogram for malignant neoplasm of breast (principal)
CPT/HCPCS: 77063; 77067

== ENCOUNTER 2021-10-09 10:27 | Outpatient (CLI) | payer OTHER, SELFPAY ==
--- NOTE | 2021-10-09 10:31 | BI_ITS ---
MAMMOGRAPHY - BILATERAL SCREENING REASON FOR EXAM: Female, 45 years old. Routine annual screening examination. PERTINENT HISTORY: Aunt with breast cancer. TECHNIQUE: Digital bilateral breast monique (3D mammographic acquisition) in the CC and MLO projections. 2-D mediolateral oblique (MLO) and craniocaudad (CC) views of both breasts were obtained. CAD: Full Field Digital Mammography with Computer Added Detection was performed. COMPARISON: Comparison is made with prior study dated 09/19/2020 and 07/11/2019. FINDINGS: Breast Composition: The breasts are heterogeneously dense, which may obscure small masses. There are no dominant masses or suspicious calcifications. Stable small benign appearing bilateral axillary. No other significant abnormalities are identified. There has been no significant change since the prior study. BI/SCRN MAMM (CAD)W/MONIQUE BILAT IMPRESSION: Stable bilateral screening mammogram. Yearly follow-up mammogram recommended. (A) ASSESSMENT CATEGORY: BIRADS Category 2: Benign. A letter regarding these results will be sent to the patient by the facility within 30 days. Approximately 10% of breast cancers are not detected by mammography. A normal mammogram should not delay biopsy of a clinically suspicious abnormality. [id number] Electronically Signed: Hao Zhou MD at 11:54 EST , Service support ,
== END 2021-10-09 23:59 | disposition short-term general hospital (02) ==
LOC: OPBI 10:29
PROVIDERS: PCP Student in an Organized Health Care Education/Training Program; Referring Provider Obstetrics & Gynecology; Visit Provider Obstetrics & Gynecology
DX: Z12.31 Encounter for screening mammogram for malignant neoplasm of breast (principal)
CPT/HCPCS: 77063; 77067

== ENCOUNTER 2024-09-08 15:34 | Emergency (ER) | payer OTHER, SELFPAY ==
[2024-09-08 15:34] VITALS: BP 161/98; PULSE 104; RESP 18; TEMP 36.2; O2SAT 96; BMI 33.6
--- NOTE | 2024-09-08 16:06 | EDS_ITS ---
HPI History of Present Illness Chief Complaint: Nosebleed Informant: patient Narrative Narrative: Right side epistaxis 2 PM. Works in the house. Has seasonal allergies and has nosebleeds history. No anticoagulants. Denies digital manipulation or any sneezing or blowing when this happened. Called her doctor today the clot was sent to the ED. States she feels it is a clot in her nose. Prior similar symptoms: Yes PFSH PFSH Home Medications ?Medication ?Instructions ?Recorded ?Last Taken ?Type famotidine 20 mg tablet 20 mg PO BID PRN Pain 02/17/14 10/08/16 07:00 History 1 vits,calcium no.78-iron 1 tab PO DAILY mvi 02/17/14 05/22/19 History fumarate-folic acid 29 mg-1 mg tablet (Prenatabs FA) cetirizine 10 mg capsule 10 mg PO DAILY Check with primary 05/22/19 05/22/19 History doctor sodium bicarbonate 650 mg tablet 650 mg PO BID #60 tabs 05/23/19 Unknown Rx Allergy/AdvReac Type Severity Reaction Status Date / Time cefdinir Allergy Intermediate Rash Verified 09/08/24 16:15 amoxicillin (Amoxicillin) Allergy Hives Verified 09/08/24 16:15 Environmental Allergies: Allergy Itching Verified 09/08/24 16:15 Uncoded (hay fever) Social History Smoking Status: Never smoker ROS ROS ED Constitutional Constitutional ED: Denies chills, fever(s) or sweats Eyes Eyes: Denies change in vision ENT ENT ED: Reports other Details: nosebleed ; Denies dysphagia or sore throat Cardiovascular Cardiovascular: Denies chest pain, leg edema, palpitations or racing heartbeat Respiratory/Chest Respiratory/Chest: Denies cough Gastrointestinal Gastrointestinal: Denies abdominal pain, diarrhea, nausea or vomiting Neurologic Neurologic: Denies headache(s) EXAM Physical Exam Const Vital Signs: 09/08/24 15:34 Temperature 97.2 F L Temperature Source Temporal Pulse Rate 104 H Respiratory Rate 18 Blood Pressure 161/98 H Blood Pressure Mean 119 Pulse Ox 96 Oxygen Delivery Method Room Air Positive well nourished and well developed General Appearance ED: well developed and NAD HEENT Reports moist mucous membranes HEENT Narrative: No posterior pharyngeal bleeding noted. After clots were expelled from the right nare, evaluation there is irritation of the anterior septum minimal bleeding no ulcerations. normocephalic and atraumatic Eyes General Eye ED: Yes normal appearance of both eyes Neck no lymphadenopathy and supple General: Negative for tenderness Chest Wall Chest: Negative for tenderness Resp normal respiratory effort and normal air movement Effort and Inspection: symmetric chest movement; Negative for respiratory distress Cardio regular rate, regular rhythm and no murmurs Peripheral Pulses: pulses 2+ throughout GI normal to inspection, nondistended, normoactive bowel sounds and non-tender Palpation: Negative for guarding or rebound tenderness present Back/Spine no CVA tenderness and no thoracic nor lumbar tenderness Extremity normal to inspection General Extremety ED: Negative for edema or tenderness General Extremity: Negative for edema Neuro oriented x3 and no sensory deficits noted Sensorium / Orientation: awake and alert Skin no rashes or lesions noted and no wounds MDM MDM MDM Narrative Medical decision making narrative: Interventions / MDM: Differential diagnosis: Right side epistaxis, nasal polyp Diagnosis considered but do not suspect: No posterior bleed My EKG interpretation: N/A Imaging independently reviewed and interpreted by myself: N/A External documents reviewed: N/A Test considered but not ordered:N/A ED course: Clots expelled from right nare, Afrin on cotton was placed along the septum and, clips were placed at 1615. Will reevaluate. 1650: Nasal cotton removed. No active bleeding there is a very small polyp in the area where is bleeding. Will continue to monitor. 1725: Recheck no bleeding she is family down the hallway by myself bent over on the bed there is no rebleeds. She sent home with the nasal clips. Discussed if rebleeds placed a clip for 20 minutes and reevaluate. Bleeding uncontrolled return to the ED. With her recurrent bleeds and small nasal polyp will refer to ENT. All questions were answered. Patient and family Re-evaluation: stable Disposition discussed with patient/family/significant other: Patient and family Case discussed with consulting clinician: N/A This note was generated with [employer] dictation software. It may contain incorrect words, spelling, and punctuation that were not noted in checking the note before signing. Discharge Plan Triage Chief Complaint: Nosebleed ED Provider: Aj Marks Dx/Rx/DC Orders Clinical Impression: Acute anterior epistaxis, Right nasal polyps Instructions: Understanding Nasal Polyps, ED Epistaxis (Adult) Prescriptions: No Action famotidine 20 MG tablet 20 mg PO BID PRN (Reason: Pain) vit,[id number] [Prenatabs FA] 1 TABLET tablet 1 tab PO DAILY cetirizine 10 MG capsule 10 mg PO DAILY sodium bicarbonate 650 MG tablet 650 mg PO BID Qty: 60 0RF Primary Care Provider: Kaushal Castillo Referrals: Kaushal Castillo DO [Primary Care Provider] - Chilo Newell MD [Med Staff - Active Staff] - 1 Week Activity Restrictions/Additional Instructions: No blowing or picking the nose. Dab as needed. Humidifier may help. Follow-up with ENT for noted small septal polyp, recurrent nasal bleeds. Print Language: Serbian Disposition Disposition: Home, Self Care Discharge Date/Time: 09/08/24 17:35
[2024-09-08] MEDS: Oxymetazoline 0.05% 1 SPRAY SPRAY.BTL 2 SPRAY NASAL (16:11)
== END 2024-09-08 17:35 | disposition home or self-care (01) ==
PROVIDERS: Emergency Provider Emergency Medicine; PCP Student in an Organized Health Care Education/Training Program; Visit Provider Emergency Medicine
DX: R04.0 Epistaxis (principal); J30.2 Other seasonal allergic rhinitis; J33.9 Nasal polyp, unspecified; Z88.0 Allergy status to penicillin; Z88.1 Allergy status to other antibiotic agents
CPT/HCPCS: 99282

== ENCOUNTER 2025-01-02 12:00 | Outpatient (RCR) | payer OTHER, SELFPAY ==
--- NOTE | 2024-10-23 19:24 | HP.PTEVAL_ITS ---
Patient's Visit Information Visit Information Visit Information: VEGA TINEO is a 49 year old F referred to Physical Therapy by BING Gallegos with a diagnosis of CYSTOCELE. Date of Evaluation: 10/23/24 Physical Therapist: Latisha Licea PT, Cert MDT Visit Plan Frequency: 1x/Week Duration: 2-4 Months Plan: PF THERAPY FOR STRENGTHENING, LENGTHENING/RELAXATION AND ENDURANCE TRAINING. URINARY URGE AND FREQUENCY EDUCATION. HEALTHY BLADDER, BACK AND POSTURE HABIT EDUCATION. TRAINING IN COORDINATION OF PELVIC FLOOR MUSCULATURE WITH HIP AND CORE (TRANSVERSE ABDOMINUS) MUSCULATURE. CORE STRENGTHENING. ASAEL LE ROM, STRETCHING AND STRENGTHENING. TRAINING IN ABDOMINAL CAVITY PRESSURE MGMT WITH ADL'S. 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 Present symptoms: INTERMITTENTLY FEELING BULGING IN VAGINAL AREA WHEN WIPING. OCCASSIONALLY A FEW DROPS OF URINARY LEAKAGE INTERMITTENT WITH COUGHING AND SNEEZING. Present since: ABOUT 12-18 MONTHS AGO Pain Scale: N/A. PATIENT DENIES PAIN Is it getting better, worse or staying the same: STAYING THE SAME Commenced as a result of: NO APPARENT REASON Symptoms at onset: URINARY LEAKAGE Worse: UI - COUGHING AND SNEEZING. BULGING - NO APPARENT REASON Better: NOTHING Previous history/Previous treatment: NO TREATMENT Treatment this episode: NO PELVIC FLOOR TREATMENT. 2 VAGINAL AND 2 C-SECTIONS. Gait: NORMAL - INTERMITTENT JOINT PAIN DUE TO AUTOIMMUNE How long can you delay the need to urinate: LONG NEEDED TO MAKE IT TO THE BATHROOM IN TIME. Prolapse (Falling out feeling): YES - ONLY INTERMITTENTLY ON TOLIET WHEN WIPING. Frequency of Urination: ABOUT EVERY 2 HOURS Ability to stop urine flow: YES Ability to initiate urine stream: YES - NEVER DIFFICULTY Dyspareunia: NO Bowel Incontinence: NO Accidents: NO Unexplained weight loss: NO Imaging: TRANSVAGINAL US SEP 2024 AND THEN BIOPSY OF ENDOMETRIAL LINING WHICH WAS BENIGN BUT HYSTEROSCOPY PENDING IN NOVEMBER 2024. DX'D WITH POSSIBLE EDENOMYOSIS AND POLYPS. SHE ALSO REPORTS BLOODWORK SHOWING VERY LOW ESTROGEN LEVELS. PMH/Recent major surgery: AUTOIMUNE DZ. RENAL TUBULAR ACIDOSIS. OTHER: PATIENT REPORTS SHE IS CURRENTLY DOING KEGELS SHE LEARNED A LONG TIME AGO BUT NOT EVERY DAY. Objective Objective: Sitting/Standing Posture: INCREASED LORDOSIS. NO RELEVANT LATERAL SHIFT. Other Observations: INDEP GAIT AND TRANSFERS Sensory deficit: ASAEL LE LIGHT TOUCH SENSATION GROSSLY INTACT AND SYMMETRICAL ROM deficit: TIGHT ASAEL LE HIP ROTATORS, HIP FLEXORS, HIP ADDUCTORS, HS'S AND GASTROC-SOLEUS COMPLEX'S. Motor deficit: ASAEL HIPS GROSSLY 4/5, KNEE'S 4/5, ANKLES 5/5. WITH VERBAL COMMUNICATION PATIENT APPEARS TO HAVE 3 SEC X 3 REP ENDURANCE IN PELVIC FLOOR AND PATIENT STATES SHE KNOWS HOW TO CONTRACT AND CAN FEEL CONTRACTION OF HER PELVIC FLOOR. Reflexes: ASAEL LE'S 2+ Dural Signs: NEGATIVE ASAEL LE'S. Lumbar mvmt loss: flex - NIL ext - MOD R SG - MIN L SG - MIN PATIENT DENIES PAIN WITH LUMBAR ROM TESTING BUT STATES SHE FEELS SOMETHING IN HER LOW BACK. STATES SHE HAS A HISTORY OF LBP AND HAS SEEN A CHIROPRACTOR IN THE PAST BUT NOT RECENTLY. REPORTS INTERMITTENT LBP. Core strength: POOR Palpation: PATIENT STATES SHE IS NOT UP FOR A PELVIC EXAM TODAY BUT MAY BE AGREEABLE IN THE FUTURE. FUNCTIONAL SCREEN: Incontinence Impact Questionnaire Score: 0 Urogenital Distress Inventory Score: 5 TREATMENT: HEP INST Goals Goal 1:: INCREASE ABDOMINAL/TRUNK, PELVIC FLOOR AND LE STRENGTH FOR OPTIMAL ORGAN SUPPORT Goal Time Frame: 8-12 Weeks Goal 2:: PATIENT WILL DEMONSTRATE/COMMUNICATE 10 CONSISTENT AND CONSECUTIVE 10 SECOND PELVIC FLOOR MUSCLE CONTRACTIONS TO DEMONSTRATE IMPROVED PELVIC FLOOR ENDURANCE. Goal Time Frame: 8-12 Weeks Goal 3:: PATIENT WILL APPROPRIATELY MANAGE CHANGES IN INTRAABDOMINAL PRESSURE WITH APPROPRIATE PELVIC FLOOR MUSCLE ACTIVATION AND BREATHING TECHNIQUES. Goal Time Frame: 2-4 Weeks Goal 4:: PATIENT WILL COMMUNICATE A GOOD UNDERSTANDING OF HEALTHY BLADDER HABITS AND VOIDING PATTERNS Goal Time Frame: 4-6 Weeks Goal 5:: PATIENT WILL DEMONSTATE/COMMUNICATE KNOWLEDGE OF PROPER POSTURE CONTROL AND BODY MECHANICS WITH NORMAL ADL'S AND WORK ACTIVITIES Goal Time Frame: 6-8 Weeks Goal 6:: INDEP HEP Goal Time Frame: 8-12 Weeks Rehabilitation Potential Physical Therapy Diagnosis: CORE AND LE WEAKNESS AND STIFFNESS. PELVIC FLOOR WEAKNESS. Rehabilitation Potential: Good Anticipated Interventions Patient/Client Instruction: Educate patient on: Condition, Plan of Care and Risk Factors For the Purpose of:: To improve self management Therapeutic Exercise to Include: Strength training, Endurance training, Body mechanics, Postural training, Flexibilty training, Neuromotor development and Relaxation training For the Purpose of:: To improve muscle performance and motor function, To improve ability of physical actions for home/community/work/leisure, To increase flexibility/ROM and To improve endurance Text: Thank you for the opportunity to evaluate your patient. For Medicare and Medicare HMO plans, please review the plan of care and approve it. It will need to be FAXED BACK to us at [phone] for Medicare purposes. For Medicare only, by signing this I certify the plan of care. Please let me know if there are questions or concerns regarding this plan of care. Physician Signature: Date:
--- NOTE | 2025-01-02 12:42 | HP.PTDCSUM ---
Discharge Summary D/C summary: It has been my pleasure to treat VEGA TINEO referred by Melissa Frederick, RALPH-C, with the diagnosis of CYSTOCELE for a total of 9 visit(s). Discharge Date: 01/02/25 Please see the following information for a summary of their discharge status. Subjective Subjective: PATIENT REPORTS SHE HASN'T HAD ANY FEELING OF BULGING SINCE LAST VISIT. STATES NEW EX'S ARE GOING GOOD. PATIENT REPORTS THE EX'S HAVE BEEN REALLY HELPFUL. Objective Objective/Function: ASSESSMENT OF CURRENT SX'S AND HEP CHECK. INSTRUCTION IN HEP FOR DISCHARGE AND PROGRESSION OF HEP WITH PELVIC FLOOR ELEVATOR EX X 5 PATIENT IS APPROPRIATE FOR DISCHARE. ALL GOALS MET. FUNCTIONAL SCREEN: Incontinence Impact Questionnaire Score: 0 Urogenital Distress Inventory Score: 0 Goals Goal 1:: INCREASE ABDOMINAL/TRUNK, PELVIC FLOOR AND LE STRENGTH FOR OPTIMAL ORGAN SUPPORT Goal Progress: Goal Met Goal 2:: PATIENT WILL DEMONSTRATE/COMMUNICATE 10 CONSISTENT AND CONSECUTIVE 10 SECOND PELVIC FLOOR MUSCLE CONTRACTIONS TO DEMONSTRATE IMPROVED PELVIC FLOOR ENDURANCE. Goal Progress: Goal Met Goal 3:: PATIENT WILL APPROPRIATELY MANAGE CHANGES IN INTRAABDOMINAL PRESSURE WITH APPROPRIATE PELVIC FLOOR MUSCLE ACTIVATION AND BREATHING TECHNIQUES. Goal Progress: Goal Met Goal 4:: PATIENT WILL COMMUNICATE A GOOD UNDERSTANDING OF HEALTHY BLADDER HABITS AND VOIDING PATTERNS Goal Progress: Goal Met Goal 5:: PATIENT WILL DEMONSTATE/COMMUNICATE KNOWLEDGE OF PROPER POSTURE CONTROL AND BODY MECHANICS WITH NORMAL ADL'S AND WORK ACTIVITIES Goal Progress: Goal Met Goal 6:: INDEP HEP Goal Progress: Goal Met Plan Plan: D/C. PATIENT AGREEABLE D/C Information d/c sentence: If there are questions or concerns regarding this patient's physical therapy, please feel free to call me at [phone]. Thank you for the referral of this patient. Sincerely, Latisha Licea, PT, Cert MDT
== END 2025-01-02 19:00 | disposition home or self-care (01) ==
LOC: PT 12:00
PROVIDERS: PCP Student in an Organized Health Care Education/Training Program; Referring Provider Nurse Practitioner Women's Health; Visit Provider Nurse Practitioner Women's Health
DX: N81.11 Cystocele, midline (principal)
CPT/HCPCS: 97162; 97530